=== PATIENT | male | born 1940 | race Caucasian/White ===

== ENCOUNTER 2019-08-21 07:17 | Day surgery (SDC) | payer MEDICARE ==
[2019-08-20 15:18] LABS: BASOPHILS % (AUTO) 0.7 % (0.0-5.0); EOSINOPHILS % (AUTO) 2.6 % (0.0-8.0); HEMATOCRIT 44.3 % (42-54); LYMPHOCYTES % (AUTO) 21.1 % (21.0-51.0); MEAN CORPUSCULAR HEMOGLOBIN 31.8 pg (27.0-33.0); MEAN CORPUSCULAR HGB CONC 33.6 g/dL (32.0-36.0); MEAN CORPUSCULAR VOLUME 94.5 fL (79-99); MONOCYTES % (AUTO) 13.4 % (3.0-13.0); NEUTROPHILS % (AUTO) 61.9 % (40.0-77.0); PLATELET COUNT (AUTO) 255 K/uL (130-400); RED BLOOD CELL COUNT(AUTO) 4.69 MIL/uL (4.50-6.20); RED CELL DISTRIBUTION WIDTH 12.8 % (11.0-15.5)
[2019-08-20 15:20] VITALS: BP 104/68
[2019-08-20 15:33] LABS: CREATININE 1.4 mg/dL (0.5-1.5); INR 0.99 (0.85-1.15); PARTIAL THROMBOPLASTIN TIME 26.5 SEC (26.3-35.5); POTASSIUM 4.1 mmol/L (3.5-5.1); PROTHROMBIN TIME 10.4 SEC (9.6-11.6)
--- NOTE | 2019-08-20 17:31 | NUR ---
REPORTED ABNORMAL LAB TO KENIA FLORES NO NEW ORDERS AT THIS TIME. PROCEED WITH PROCEDURE.
[~2019-08-21] VITALS: Ht 193 cm; Wt 107.3 kg
[2019-08-21] VITALS (16 sets, daily range): BP systolic 98–132; BP diastolic 34–73
[~2019-08-21 07:17] MED LIST: ASPI1CPM8 PO; ATOR-2 PO; EZET10TA48 PO; GLIP-162 PO; HYDR25TA PO; METF-446 PO; METO50 PO; OMEG-148 PO; OMEP40CA13 PO
[2019-08-21] MEDS ORDERED: SODIUM CHLORIDE 0.9% 1000ML 1,000 ML IV ONE (09:07)
[2019-08-21] MEDS ORDERED: ATROPINE SULFATE 0.1 MG/ML 10 ML SYG IVP ONE (09:55)
[2019-08-21] MEDS ORDERED: FLUMAZENIL 0.1MG/1ML 5ML VIAL IV ONE (09:55)
[2019-08-21] MEDS ORDERED: NALOXONE HCL 0.4 MG/1 ML ML ONE (09:55)
[2019-08-21] MEDS ORDERED: FENTANYL CITRATE PF 50 MCG/1 ML 2ML VIAL ONE (09:56)
[2019-08-21] MEDS ORDERED: MIDAZOLAM HCL 1 MG/ML 2ML VIAL ONE ×2 (09:56→11:04)
[2019-08-21] MEDS ORDERED: LIDOCAINE HCL 2% VISCOUS 15 ML UDCUP ONE (10:52)
--- NOTE | 2019-08-21 13:00 | NUR ---
PT JOSEPH PROCEDURE WELL NO COMPLICATIONS, V/S STABLE , D/C INSTRUCTIONS GIVEN TO . PT LEFT VIA WHEELCHAIR, IN PVT CAR.
== END 2019-08-21 13:00 | disposition home or self-care (01) ==
LOC: DAH 07:17
PROVIDERS: ATTEND Internal Medicine Cardiovascular Disease
DX: G45.8 Other transient cerebral ischemic attacks and related syndromes (principal); I25.10 Atherosclerotic heart disease of native coronary artery without angina pectoris; I10 Essential (primary) hypertension; E78.5 Hyperlipidemia, unspecified; E11.9 Type 2 diabetes mellitus without complications; Z79.899 Other long term (current) drug therapy; Z87.891 Personal history of nicotine dependence; Z96.643 Presence of artificial hip joint, bilateral; Z90.49 Acquired absence of other specified parts of digestive tract; Z98.890 Other specified postprocedural states; Z79.84 Long term (current) use of oral hypoglycemic drugs; Z95.1 Presence of aortocoronary bypass graft; Z72.89 Other problems related to lifestyle; Z83.3 Family history of diabetes mellitus; Z82.49 Family history of ischemic heart disease and other diseases of the circulatory system; Z79.01 Long term (current) use of anticoagulants
CPT/HCPCS: 36415; 80048; 82948; 85025; 85610; 85730; 93005; 93313; A4215; A4216; A4221; A4222; A4223 ×3; A4606; J2250 ×2; J3010; J7030; J0461; J2310; J3490